=== PATIENT | female | born 1975 | race Native Hawaiian/Other Pacific Islander ===

== ENCOUNTER 2017-01-25 20:09 | Emergency (ER) | payer OTHER ==
[~2017-01-25] VITALS: Ht 167.6 cm; Wt 136.1 kg
[~2017-01-25 20:09] MED LIST: SIMV20TA2 PO
[2017-01-25 21:05] LABS: PLATELET COUNT 286 K/uL (152-353)
[2017-01-25 21:11] LABS: POTASSIUM 3.8 mmol/L (3.6-5.2)
[2017-01-25 22:26] VITALS: BP 118/87; TEMP 98
== END 2017-01-25 22:26 | disposition home or self-care (01) ==
LOC: ED 20:09
PROVIDERS: Emergency Medicine
DX: N39.0 Urinary tract infection, site not specified (principal); R10.2 Pelvic and perineal pain
CPT/HCPCS: 36415; 80053; 81000; 81025; 82150; 83690; 85027; 99283

== ENCOUNTER 2017-10-29 23:06 | Emergency (ER) | payer OTHER ==
[~2017-10-29] VITALS: Ht 167.6 cm; Wt 139.3 kg
[2017-10-30 00:27] VITALS: BP 122/82; TEMP 98.5
== END 2017-10-30 00:33 | disposition home or self-care (01) ==
LOC: ED 23:06
DX: H92.01 Otalgia, right ear (principal)
CPT/HCPCS: 99282

== ENCOUNTER 2017-11-13 17:35 | Emergency (ER) | payer OTHER ==
[~2017-11-13] VITALS: Ht 167.6 cm; Wt 139.3 kg
[2017-11-13 17:41] VITALS: TEMP 97.9
[2017-11-13 18:55] VITALS: BP 126/74
== END 2017-11-13 18:55 | disposition home or self-care (01) ==
LOC: ED 17:35
DX: S93.491A Sprain of other ligament of right ankle, initial encounter (principal); W17.2XXA Fall into hole, initial encounter; Y92.89 Other specified places as the place of occurrence of the external cause
CPT/HCPCS: 99282

== ENCOUNTER 2018-07-23 10:10 | Outpatient (CLI) | payer OTHER ==
[2018-07-23 10:33] LABS: PLATELET COUNT 371 K/uL (152-353)
== END 2018-07-23 22:48 | disposition home or self-care (01) ==
LOC: LABW 10:10
PROVIDERS: Physician Assistant
DX: E78.5 Hyperlipidemia, unspecified (principal); D64.9 Anemia, unspecified; K58.9 Irritable bowel syndrome, unspecified
CPT/HCPCS: 36415; 80053; 80061; 82306; 82607; 84439; 84443; 85027

== ENCOUNTER 2018-10-08 00:02 | Emergency (ER) | payer OTHER ==
[~2018-10-08] VITALS: Ht 167.6 cm; Wt 139.3 kg
[2018-10-08 00:50] VITALS: BP 121/81; TEMP 98.5
== END 2018-10-08 00:56 | disposition home or self-care (01) ==
LOC: ED 00:02
DX: J41.0 Simple chronic bronchitis (principal); J06.9 Acute upper respiratory infection, unspecified; R11.2 Nausea with vomiting, unspecified
CPT/HCPCS: 87502; 87651; 99283

== ENCOUNTER 2018-11-27 09:53 | Outpatient (CLI) | payer OTHER | END 2018-11-27 22:46 | disposition home or self-care (01) | LOC: LABW 09:53 | DX: N91.4 Secondary oligomenorrhea (principal); R53.82 Chronic fatigue, unspecified | CPT/HCPCS: 36415; 82670; 83001; 83002; 84144 ==

== ENCOUNTER 2018-12-30 00:26 | Inpatient (IN) | payer OTHER ==
[2018-12-30] VITALS (8 sets, daily range): BP systolic 90–125; BP diastolic 48–79; TEMP 97.8–98.3; Ht 167.6 cm; Wt 136.2 kg
[~2018-12-30] VITALS: Ht 167.6 cm; Wt 136.2 kg
[2018-12-30 01:21] LABS: PLATELET COUNT 339 K/uL (152-353)
[2018-12-30 01:33] LABS: POTASSIUM 4.7 mmol/L (3.6-5.2)
[2018-12-30 12:07] LABS: PLATELET COUNT 302 K/uL (152-353)
[2018-12-30 12:53] LABS: POTASSIUM 3.8 mmol/L (3.6-5.2)
[2018-12-31] VITALS (7 sets, daily range): BP systolic 87–106; BP diastolic 40–62; TEMP 98.1–98.7
[2018-12-31 05:12] LABS: PLATELET COUNT 277 K/uL (152-353)
[2018-12-31 05:23] LABS: POTASSIUM 4.2 mmol/L (3.6-5.2)
[2019-01-01 04:00] VITALS: BP 93/53; TEMP 98.3
[2019-01-01 08:00] VITALS: BP 102/55; TEMP 98.2
[2019-01-01 12:00] VITALS: BP 124/67; TEMP 97.6
[2019-01-01] MEDS ORDERED: CIPRO500 MG PO (12:13)
[2019-01-01] MEDS ORDERED: METR250T19 PO (12:16)
== END 2019-01-01 14:20 | disposition home or self-care (01) | DRG 392 ==
LOC: ED 00:26 → MED/SURG 06:15
PROVIDERS: Internal Medicine; ADMIT Family Medicine
DX: K57.32 Diverticulitis of large intestine without perforation or abscess without bleeding (principal); K21.9 Gastro-esophageal reflux disease without esophagitis; Z72.0 Tobacco use; M15.8 Other polyosteoarthritis
CPT/HCPCS: 36415; 80048; 80053; 81000; 82150; 83690; 85027; 96360; 96368; 96375; 99284; J0744; J1170; J1200; J1650; J1956; J2405; J3490

== ENCOUNTER 2019-05-21 09:24 | Outpatient (CLI) | payer OTHER ==
[~2019-05-21 09:24] MED LIST changes: +CIPRO500 MG PO; +METR250T19 PO
[2019-05-21 09:43] LABS: PLATELET COUNT 325 K/uL (152-353)
== END 2019-05-21 20:10 | disposition home or self-care (01) ==
LOC: LABW 09:24
PROVIDERS: Obstetrics & Gynecology
DX: N92.0 Excessive and frequent menstruation with regular cycle (principal)
CPT/HCPCS: 36415; 85027

== ENCOUNTER 2021-03-21 19:49 | Emergency (ER) | payer OTHER ==
[~2021-03-21] VITALS: Ht 167.6 cm; Wt 148.3 kg
[2021-03-21 20:53] LABS: PLATELET COUNT 457 K/uL (152-353)
[2021-03-21 21:47] LABS: POTASSIUM 4.3 mmol/L (3.6-5.2)
[2021-03-21 23:15] VITALS: BP 132/78; TEMP 97.6
== END 2021-03-21 23:15 | disposition home or self-care (01) ==
LOC: ED 19:49
PROVIDERS: Hospitalist
DX: R10.32 Left lower quadrant pain (principal)
CPT/HCPCS: 36415; 80053; 81000; 81025; 83690; 85027; 96360; 96361; 96375; 99284; J1885; J2405

== ENCOUNTER 2021-05-27 08:16 | Outpatient (CLI) | payer OTHER | END 2021-05-27 19:21 | disposition home or self-care (01) | LOC: RAD 08:16 | PROVIDERS: ATTEND Internal Medicine | DX: Z01.818 Encounter for other preprocedural examination (principal) ==

== ENCOUNTER 2022-03-25 14:56 | Emergency (ER) | payer OTHER ==
[~2022-03-25] VITALS: Ht 167.6 cm; Wt 148.3 kg
[2022-03-25 15:08] VITALS: BP 113/77; TEMP 97.2
== END 2022-03-25 16:25 | disposition home or self-care (01) ==
LOC: ED 14:56
DX: S70.02XA Contusion of left hip, initial encounter (principal); W18.39XA Other fall on same level, initial encounter; Y92.89 Other specified places as the place of occurrence of the external cause
CPT/HCPCS: 99282; 99283

== ENCOUNTER 2022-04-07 22:09 | Emergency (ER) | payer OTHER ==
[~2022-04-07] VITALS: Ht 167.6 cm; Wt 137.4 kg
[2022-04-07 23:58] LABS: POTASSIUM 3.8 mmol/L (3.6-5.2)
[2022-04-08 00:55] LABS: PLATELET COUNT 245 K/uL (152-353)
[2022-04-08 02:00] VITALS: BP 123/70; TEMP 98.1
== END 2022-04-08 02:00 | disposition home or self-care (01) ==
LOC: ED 22:09
PROVIDERS: Family Medicine
DX: E66.01 Morbid (severe) obesity due to excess calories (principal); S39.011A Strain of muscle, fascia and tendon of abdomen, initial encounter; R11.0 Nausea; W01.0XXA Fall on same level from slipping, tripping and stumbling without subsequent striking against object, initial encounter; Y92.89 Other specified places as the place of occurrence of the external cause
CPT/HCPCS: 36415; 80053; 80307; 81002; 85027; 99283

== ENCOUNTER 2022-04-09 12:32 | Emergency (ER) | payer OTHER ==
[~2022-04-09] VITALS: Ht 167.6 cm; Wt 137.4 kg
[2022-04-09 12:35] VITALS: TEMP 98.3
[2022-04-09 13:25] LABS: PLATELET COUNT 229 K/uL (152-353)
[2022-04-09 13:33] LABS: POTASSIUM 3.8 mmol/L (3.6-5.2)
[2022-04-09 15:55] VITALS: BP 109/73
== END 2022-04-09 15:58 | disposition home or self-care (01) ==
LOC: ED 12:32
PROVIDERS: Family Medicine
DX: R11.2 Nausea with vomiting, unspecified (principal); K57.30 Diverticulosis of large intestine without perforation or abscess without bleeding; E87.1 Hypo-osmolality and hyponatremia; N18.9 Chronic kidney disease, unspecified
CPT/HCPCS: 80053; 81002; 82150; 83690; 85027; 96360; 96361; 96374; 96375; 99284; J1200; J1885; J2405